=== PATIENT | male | born 1975 | race Asian ===

== ENCOUNTER → 2017-02-17 | Outpatient (CLI) | payer OTHER ==
[~2017-02-17] MED LIST: GADOBUTROL 10 ML VIAL IVP ONE
== END ==
LOC: FIMAGING 15:53
PROVIDERS: ATTEND Internal Medicine Hematology & Oncology
DX: Z08 Encounter for follow-up examination after completed treatment for malignant neoplasm (principal); C83.39 Diffuse large B-cell lymphoma, extranodal and solid organ sites; Z98.890 Other specified postprocedural states
CPT/HCPCS: A9585